=== PATIENT | male | born 1965 | race Caucasian/White ===

== ENCOUNTER 2017-04-10 22:33 | Emergency (ER) | payer BC ==
[2017-04-10 22:43] VITALS: TEMP 98.2
[2017-04-10] MEDS ORDERED: ONDANSETRON 4 MG/2 ML VIAL ONE (22:46)
[2017-04-10] MEDS ORDERED: ONDANSETRON 4 MG/2 ML VIAL IVP ONE (22:46)
[2017-04-10] MEDS ORDERED: NS 1,000 ML IV ONE (22:57)
--- NOTE | 2017-04-10 23:02 | EDPHY ---
H & P Stated Complaint: pt c/o N/v. 6 etoh drink and approx 200mg thc HPI/ROS: HPI CHIEF COMPLAINT: Nausea, vomiting after alcohol and marijuana. HISTORY OF PRESENT ILLNESS: This patient 51-year-old male otherwise healthy, no significant medical history, presents emergency room with nausea vomiting and dizziness. He is from [place]. He has been in [place] for 3 days. He states that he had 6-7 liquor drinks this evening. Also admits to marijuana. States he ate a cookie marijuana cookie 200 mg. He now presents with nausea vomiting and dizziness. Denies chest pain. Past Medical History: No significant medical history Past Surgical History: No significant surgical Social History: From [place], endorses alcohol this evening and marijuana. Family History: Noncontributory ROS REVIEW OF SYSTEMS: A comprehensive 10 point review of systems is otherwise negative aside from elements mentioned in the history of present illness. Exam Constitutional appears well nontoxic, triage nursing summary reviewed, vital signs reviewed, awake/alert. Eyes normal conjunctivae and sclera, EOMI, PERRLA. HENT normal inspection, atraumatic, moist mucus membranes, no epistaxis, neck supple/ no meningismus, no raccoon eyes. Respiratory clear to auscultation bilaterally, normal breath sounds, no respiratory distress, no wheezing. Cardiovascular rate normal, regular rhythm, no murmur, no edema, distal pulses normal. Gastrointestinal soft, non-tender, no rebound, no guarding, normal bowel sounds, no distension, no pulsatile mass. Genitourinary no CVA tenderness. Musculoskeletal no midline vertebral tenderness, full range of motion, no calf swelling, no tenderness of extremities, no meningismus, good pulses, neurovascularly intact. Skin pink, warm, & dry, no rash, skin atraumatic. Neurologic awake, alert and oriented x 3, AAOx3, moves all 4 extremities equally, motor intact, sensory intact, CN II-XII intact, normal cerebellar, normal vision, normal speech. Psychiatric normal mood/affect. Heme/Lymph/Immune no lymphadenopathy. Differential Diagnosis: Includes but is not limited to in a particular order, marijuana overdose, THC overdose, alcohol intoxication, nausea vomiting from acute alcohol intoxication and marijuana 200 mg. Medical Decision Making: Plan for this patient supportive care, IV fluids, IV Zofran. EKG. General blood work. Re-evaluation: 1230AM: Patient resting comfortably. No vomiting. Getting 2nd L of normal saline. 1230AM: Blood work reviewed. Negative troponin. No chest pain or shortness of breath. EKG interpretation by me on record in [employer] system. Impression time of EKG 2311, this is sinus rhythm rate of 59. T-wave abnormality seen in lead 3. AVF. V1. Otherwise unremarkable. 0124AM: Patient up ambulating throughout the emergency room without difficulty feels much better after IV fluids and nausea medicine. Denies chest pain or shortness of breath. Denies dizziness. Comfortable discharge planning. I did go over appropriate dose of marijuana with him. Feels comfortable this plan. Understands return emergency room if develops worsening symptoms includes worsening nausea, vomiting, dizziness. Source: Patient - Personal History Current Tetanus Diphtheria and Acellular Pertussis (TDAP): Unsure - Medical/Surgical History Hx Asthma: No Hx Chronic Respiratory Disease: No Hx Diabetes: No Hx Cardiac Disease: No Hx Renal Disease: No Hx Cirrhosis: No Hx Alcoholism: No Hx HIV/AIDS: No Hx Splenectomy or Spleen Trauma: No Other PMH: denies - Social History Smoking Status: Never smoked Constitutional: Initial Vital Signs Temperature (C) 36.8 C 04/10/17 22:39 Heart Rate 70 04/10/17 22:39 Respiratory Rate 18 04/10/17 22:39 Blood Pressure 129/88 H 04/10/17 22:39 O2 Sat (%) 94 04/10/17 22:39 O2 Delivery Mode Room Air Allergies/Adverse Reactions: No Known Allergies Allergy (Unverified 04/10/17 22:39) Home Medications: Medication Instructions Recorded NK [No Known Home Meds] 04/10/17 Medical Decision Making - Data Points Laboratory Results: Laboratory Results 04/10/17 22:53 04/10/17 22:53 04/10/17 04/10/17 04/10/17 22:53 22:53 22:53 WBC 15.12 10^3/uL H 10^3/uL (3.80-9.50) RBC 4.70 10^6/uL 10^6/uL (4.40-6.38) Hgb 14.2 g/dL g/dL (13.7-17.5) Hct 42.7 % % (40.0-51.0) MCV 90.9 fL fL (81.5-99.8) MCH 30.2 pg pg (27.9-34.1) MCHC 33.3 g/dL g/dL (32.4-36.7) RDW 13.2 % % (11.5-15.2) Plt Count 283 10^3/uL 10^3/uL (150-400) MPV 11.4 fL fL (8.7-11.7) Neut % (Auto) 71.5 % % (39.3-74.2) Lymph % (Auto) 17.9 % % (15.0-45.0) [place] % (Auto) 8.4 % % (4.5-13.0) Eos % (Auto) 1.0 % % (0.6-7.6) Baso % (Auto) 0.7 % % (0.3-1.7) Nucleat RBC Rel Count 0.0 % % (0.0-0.2) Absolute Neuts (auto) 10.81 10^3/uL H 10^3/uL (1.70-6.50) Absolute Lymphs (auto) 2.71 10^3/uL 10^3/uL (1.00-3.00) Absolute Monos (auto) 1.27 10^3/uL H 10^3/uL (0.30-0.80) Absolute Eos (auto) 0.15 10^3/uL 10^3/uL (0.03-0.40) Absolute Basos (auto) 0.10 10^3/uL 10^3/uL (0.02-0.10) Absolute Nucleated RBC 0.00 10^3/uL 10^3/uL (0-0.01) Immature Gran % 0.5 % % (0.0-1.1) Immature Gran # 0.08 10^3/uL 10^3/uL (0.00-0.10) Sodium 141 mEq/L mEq/L (134-144) Potassium 4.0 mEq/L mEq/L (3.5-5.2) Chloride 105 mEq/L mEq/L (97-110) Carbon Dioxide 19 mEq/l L mEq/l (22-31) Anion Gap 17 mEq/L H mEq/L (8-16) BUN 23 mg/dL mg/dL (7-23) Creatinine 1.3 mg/dL mg/dL (0.7-1.3) Estimated GFR 58 Glucose 124 mg/dL H mg/dL (70-100) Calcium 9.9 mg/dL mg/dL (8.5-10.4) Total Bilirubin 0.8 mg/dL mg/dL (0.1-1.4) Conjugated Bilirubin 0.4 mg/dL mg/dL (0.0-0.5) Unconjugated Bilirubin 0.4 mg/dL mg/dL (0.0-1.1) AST 44 IU/L IU/L (17-59) ALT 39 IU/L IU/L (21-72) Alkaline Phosphatase 37 IU/L L IU/L (38-126) Troponin I < 0.012 ng/mL ng/mL (0-0.034) Total Protein 7.5 g/dL g/dL (6.3-8.2) Albumin 4.6 g/dL g/dL (3.5-5.0) Lipase 95.0 IU/L IU/L (23-300) Ethyl Alcohol 26 mg/dL H mg/dL (0-10) Medications Given: Discontinued Medications Sodium Chloride (Ns) 1,000 mls @ 0 mls/hr IV ONCE ONE; Wide Open PRN Reason: Protocol Stop: 04/10/17 22:58 Last Admin: 04/10/17 22:57 Dose: 1,000 mls Sodium Chloride (Ns) 1,000 mls @ 0 mls/hr IV ONCE ONE PRN Reason: Wide Open Stop: 04/11/17 00:30 Last Admin: 04/11/17 00:33 Dose: 1,000 mls Ondansetron HCl (Zofran) 4 mg IVP EDNOW ONE Stop: 04/10/17 22:47 Last Admin: 04/10/17 22:57 Dose: 4 mg Departure - Departure Disposition: Home, Routine, Self-Care Clinical Impression: Alcohol intoxication Qualifiers: Complication of substance-induced condition: uncomplicated Qualified Code(s): F10.920 - Alcohol use, unspecified with intoxication, uncomplicated Marijuana intoxication Qualifiers: Complication of substance-induced condition: uncomplicated Qualified Code(s): F12.920 - Cannabis use, unspecified with intoxication, uncomplicated Condition: Good Instructions: Acute Nausea and Vomiting (ED) Additional Instructions: 1. Return to the emergency room if there is any worsening symptoms questions or concerns. 2. [place] diet. No spicy fatty greasy foods. No marijuana. No alcohol. Referrals: [facility] [Other] - As per Instructions
--- NOTE | 2017-04-10 23:13 | CPEKG ---
Heart Rate: 59 RR Interval: 1017 P-R Interval: 192 QRSD Interval: 100 QT Interval: 440 QTC Interval: 436 P Dante: 24 QRS Dante: -2 T Wave Dante: -2 EKG Severity - BORDERLINE ECG - EKG Impression: SINUS RHYTHM EKG Impression: BORDERLINE T ABNORMALITIES, INFERIOR LEADS Electronically Signed By: Escobar Asher 11-Apr-2017 07:22:40
[2017-04-10 23:21] LABS: % IMMATURE GRANULYOCYTES 0.5 % (0.0-1.1); ABSOLUTE IMMATURE GRANULOCYTES 0.08 10^3/uL (0.00-0.10); ADD DIFF? NO; ADD MORPH? NO; ADD SCAN? NO; ATYPICAL LYMPHOCYTE FLAG 10 (0-99); FRAGMENT RBC FLAG 0 (0-99); HEMATOCRIT 42.7 % (40.0-51.0); HEMOGLOBIN 14.2 g/dL (13.7-17.5); LEFT SHIFT FLG 10 (0-99); LIPEMIA HEMOLYSIS FLAG 80 (0-99); MEAN CELL HEMOGLOBIN 30.2 pg (27.9-34.1); MEAN CELL HEMOGLOBIN CONCENTR. 33.3 g/dL (32.4-36.7); MEAN CELL VOLUME 90.9 fL (81.5-99.8); MEAN PLATELET VOLUME 11.4 fL (8.7-11.7); PLATELET CLUMPS FLAG 0 (0-99); PLATELET COUNT 283 10^3/uL (150-400); RED CELL DISTRIBUTION WIDTH 13.2 % (11.5-15.2)
[2017-04-10 23:28] LABS: ALANINE AMINOTRANSFERASE 39 IU/L (21-72); ALBUMIN 4.6 g/dL (3.5-5.0); ALKALINE PHOSPHATASE 37 IU/L (38-126); ANION GAP 17 mEq/L (8-16); ASPARTATE AMINOTRANSFERASE 44 IU/L (17-59); BILIRUBIN,TOTAL 0.8 mg/dL (0.1-1.4); BILIRUBIN-CONJUGATED 0.4 mg/dL (0.0-0.5); BILIRUBIN-UNCONJUGATED 0.4 mg/dL (0.0-1.1); CALCIUM 9.9 mg/dL (8.5-10.4); CARBON DIOXIDE 19 mEq/l (22-31); CHLORIDE 105 mEq/L (97-110); CREATININE 1.3 mg/dL (0.7-1.3); ETHANOL SERUM 26 mg/dL (0-10); GLOMERULAR FILTRATION RATE 58; GLUCOSE 124 mg/dL (70-100); SODIUM 141 mEq/L (134-144); TOTAL PROTEIN 7.5 g/dL (6.3-8.2)
[2017-04-11] MEDS ORDERED: NS 1,000 ML IV ONE (00:29)
[2017-04-11 00:35] VITALS: RESP 16
[2017-04-11 00:59] VITALS: BP 127/82; PULSE 60; O2SAT 93
== END 2017-04-11 01:29 | disposition home or self-care (01) ==
DX: F10.920 Alcohol use, unspecified with intoxication, uncomplicated (principal); F12.920 Cannabis use, unspecified with intoxication, uncomplicated; E86.9 Volume depletion, unspecified
CPT/HCPCS: 96374; G0480; J2405